=== PATIENT | female | born 1990 | race Caucasian/White ===

== ENCOUNTER 2020-12-13 00:44 | Emergency (ER) | payer OTHER, MEDICAID ==
[~2020-12-13] VITALS: Ht 170.2 cm; Wt 134.3 kg
[2020-12-13] MEDS ORDERED: LABETALOL HCL100 MG PO (00:55)
[2020-12-13] MEDS ORDERED: CYMBALTA60 MG PO (00:55)
[2020-12-13] MEDS ORDERED: LYRICA150 MG PO (00:56)
[2020-12-13] MEDS ORDERED: FLEXERIL PO (00:56)
[2020-12-13] MEDS ORDERED: ADIPEX-P37.5 MG PO (00:56)
[2020-12-13] MEDS ORDERED: CILOXAN5 ML RT. EAR ×2 (01:32→01:37)
[2020-12-13] MEDS ORDERED: AMOXICILLIN875 MG PO (01:32)
[2020-12-13] MEDS ORDERED: ACETAMINOPHEN-1 EAC2 PO (01:32)
[2020-12-13 02:11] VITALS: BP 144/85
[2020-12-13] MEDS ORDERED: NORCO5 PO ×3 (15:41→15:52)
[2020-12-13] MEDS ORDERED: MECLIZINE HCL25 M1 PO (15:41)
[2020-12-13] MEDS ORDERED: ZOFRAN ODT4 MG PO (15:41)
== END 2020-12-13 02:11 | disposition home or self-care (01) ==
LOC: M.ERS 00:44
DX: H66.91 Otitis media, unspecified, right ear (principal); I10 Essential (primary) hypertension; M79.7 Fibromyalgia; F17.210 Nicotine dependence, cigarettes, uncomplicated

== ENCOUNTER 2020-12-13 15:01 | Emergency (ER) | payer OTHER, MEDICAID ==
[~2020-12-13] VITALS: Ht 170.2 cm; Wt 134.3 kg
[~2020-12-13 15:01] MED LIST: ACETAMINOPHEN-1 EAC2 PO; ADIPEX-P37.5 MG PO; AMOXICILLIN875 MG PO; CILOXAN5 ML RT. EAR; CYMBALTA60 MG PO; FLEXERIL PO; LABETALOL HCL100 MG PO; LYRICA150 MG PO
[2020-12-13] MEDS ORDERED: ZOFRAN ODT4 MG PO (15:41)
[2020-12-13] MEDS ORDERED: MECLIZINE HCL25 M1 PO (15:41)
[2020-12-13] MEDS ORDERED: NORCO5 PO ×3 (15:41→15:52)
[2020-12-13 15:55] VITALS: BP 135/75
== END 2020-12-13 15:55 | disposition home or self-care (01) ==
LOC: M.ERS 15:01
DX: H66.91 Otitis media, unspecified, right ear (principal); R42 Dizziness and giddiness

== ENCOUNTER 2021-03-16 15:46 | Emergency (ER) | payer OTHER, MEDICAID ==
[~2021-03-16] VITALS: Ht 170.2 cm; Wt 142.9 kg
[~2021-03-16 15:46] MED LIST changes: +MECLIZINE HCL25 M1 PO; +NORCO5 PO; +ZOFRAN ODT4 MG PO
[2021-03-16] MEDS ORDERED: KLONOPIN0.5 MG PO (17:06)
[2021-03-16 17:15] VITALS: BP 144/88
== END 2021-03-16 17:16 | disposition home or self-care (01) ==
LOC: M.ERS 15:46
DX: Z76.0 Encounter for issue of repeat prescription (principal); I10 Essential (primary) hypertension; M79.7 Fibromyalgia; F32.9 Major depressive disorder, single episode, unspecified; F41.9 Anxiety disorder, unspecified; E66.2 Morbid (severe) obesity with alveolar hypoventilation; Z79.899 Other long term (current) drug therapy

== ENCOUNTER 2021-07-19 20:14 | Emergency (ER) | payer OTHER, MEDICAID ==
[~2021-07-19] VITALS: Ht 170.2 cm; Wt 142.9 kg
[~2021-07-19 20:14] MED LIST changes: +KLONOPIN0.5 MG PO
[2021-07-19 20:54] VITALS: BP 145/85
[2021-07-19 21:08] LABS: URINE BILIRUBIN NEGATIVE (Negative); URINE BLOOD 1+ (Negative); URINE CLARITY CLEAR; URINE COLOR YELLOW; URINE GLUCOSE-RANDOM NEGATIVE (Negative); URINE KETONES NEGATIVE (Negative); URINE LEUKOCYTES-REFLEX NEGATIVE (Negative); URINE NITRITE-REFLEX NEGATIVE (Negative); URINE PROTEIN NEGATIVE (Negative); URINE SPECIFIC GRAVITY >= 1.030 (1.005-1.030)
[2021-07-19 21:17] LABS: AMP/METHAMP POSITIVE (Negative); BARBITURATES Negative (Negative); BENZODIAZEPINES Negative (Negative); COCAINE Negative (Negative); METHADONE Negative (Negative); OPIATES POSITIVE (Negative); PCP Negative (Negative); THC POSITIVE (Negative)
[2021-07-19 21:24] LABS: BACTERIA-REFLEX 1-9 Few /HPF (None Seen); SQUAMOUS >10 Many /LPF (0-3); URINE RBC 3-10 Few /HPF (0-2); URINE WBC-REFLEX 0-5 Rare /HPF (0-5)
[2021-07-19 21:25] LABS: CASTS None Seen /LPF (None Seen); CRYSTALS None Seen /LPF (None Seen); MUCUS 0-3 Light strn/LPF (None Seen)
== END 2021-07-20 01:20 | disposition left against medical advice (07) ==
LOC: M.ERS 20:14
PROVIDERS: Emergency Medicine
DX: M54.50 Low back pain, unspecified (principal); Z53.21 Procedure and treatment not carried out due to patient leaving prior to being seen by health care provider

== ENCOUNTER 2021-09-20 18:57 | Emergency (ER) | payer OTHER, MEDICAID ==
[~2021-09-20] VITALS: Ht 170.2 cm; Wt 142.9 kg
[2021-09-20 20:24] VITALS: BP 147/69
== END 2021-09-20 20:24 | disposition home or self-care (01) ==
LOC: M.ERS 18:57
DX: M54.2 Cervicalgia (principal); I10 Essential (primary) hypertension; M79.7 Fibromyalgia; E66.01 Morbid (severe) obesity due to excess calories; Z68.42 Body mass index [BMI] 45.0-49.9, adult